=== PATIENT | male | born 1995 | race Caucasian/White ===

== ENCOUNTER 2018-04-19 18:57 | Emergency (ER) | payer SELFPAY ==
[~2018-04-19] VITALS: Ht 167.6 cm; Wt 90.3 kg
[2018-04-19 19:45] VITALS: Ht 167.6 cm; Wt 90.3 kg
[2018-04-19 22:50] VITALS: BP 134/61
== END 2018-04-19 22:50 | disposition home or self-care (01) ==
LOC: ED 18:57
DX: L03.032 Cellulitis of left toe (principal); W22.8XXA Striking against or struck by other objects, initial encounter; Y93.89 Activity, other specified; Y92.89 Other specified places as the place of occurrence of the external cause; Y99.8 Other external cause status
CPT/HCPCS: J0696